=== PATIENT | female | born 1985 | race Caucasian/White ===

== ENCOUNTER 2016-12-05 14:44 | Emergency (ER) | payer OTHER ==
[~2016-12-05] VITALS: Ht 175.3 cm; Wt 140.6 kg
[~2016-12-05 14:44] MED LIST: FERR-26 PO; FLUT9.9S NS; Gabapentin PO; HCTZ PO; HYDR-79 PO; IBUP-1060 PO; LISI-334 PO; LISI-338 PO; LISI10TA2 PO; METF500T4 PO; METO10TA PO; PRED-220 PO; PROM12.56 PO; PROP10TA PO; RANI15SY PO; SPIR25TA3 PO
[2016-12-05 14:53] VITALS: BP 159/95
[2016-12-05] MEDS ORDERED: TRAM50TA PO (15:31)
--- NOTE | 2016-12-05 15:31 | PHYS DOC ---
Past Medical History Past Medical History: Diabetes-Type II, Hypertension, Kidney Stone, Other Additional Past Medical Histor: Arthritis, HSP Past Surgical History: Cholecystectomy, , Tubal ligation, Other Additional Past Surgical Histo: Ureteral stents, D&C, WISDOMT TEETH EXTRACTION Alcohol Use: None Drug Use: None Adult General Chief Complaint Chief Complaint: [facility] PROBLEM [facility] HPI Patient is a 31 year old female who presents with bilateral dental pain after having her wisdom teeth removed on 12/02/15. Reports she has taking Ibuprofen without relief. Denies fever. Review of Systems Review of Systems Constitutional: Denies fever or chills Eyes: Denies change in visual acuity, redness, or eye pain HENT: Denies nasal congestion or sore throat. Bilateral lower dental pain Respiratory: Denies cough or shortness of breath Cardiovascular: No additional information not addressed in HPI GI: Denies abdominal pain, nausea, vomiting, bloody stools or diarrhea : Denies dysuria or hematuria Musculoskeletal: Denies back pain or joint pain Integument: Denies rash or skin lesions Neurologic: Denies headache, focal weakness or sensory changes Endocrine: Denies polyuria or polydipsia Allergies Allergies Allergies Coded Allergies Type Severity Reaction Last Updated Verified acetaminophen Allergy Severe angioedema 01/07/14 Yes Penicillins Allergy Intermediate Hives 08/30/14 Yes amoxicillin Allergy Intermediate hives 08/30/14 Yes morphine Allergy Intermediate "[place] like chest was going to explode" 09/03/14 Yes sulfamethoxazole Allergy Intermediate 08/30/14 Yes tetracycline Allergy Intermediate hives 08/30/14 Yes trimethoprim Allergy Intermediate 08/30/14 Yes tramadol Adverse Reaction Intermediate 12/05/16 Yes Physical Exam Physical Exam Constitutional: Well developed, well nourished, no acute distress, non-toxic appearance. HENT: Normocephalic, atraumatic, bilateral external ears normal, oropharynx moist, no oral exudates, nose normal. Bilateral wisdom area without erythema, hematoma, abscess, or dry socket. No trismus Eyes: PERRLA, EOMI, conjunctiva normal, no discharge. Neck: Normal range of motion, no tenderness, supple, no stridor. Cardiovascular:Heart rate regular rhythm, no murmur Lungs & Thorax: Bilateral breath sounds clear to auscultation Abdomen: Bowel sounds normal, soft, no tenderness, no masses, no pulsatile masses. [] Skin: Warm, dry, no erythema, no rash. [] Back: No tenderness, no CVA tenderness. [] Extremities: No tenderness, no cyanosis, no clubbing, ROM intact, no edema. [] Neurologic: Alert and oriented X 3, normal motor function, normal sensory function, no focal deficits noted. [] Psychologic: Affect normal, judgement normal, mood normal. [] Current Patient Data Vital Signs Vital Signs Date Time Temp Pulse Resp B/P Pulse Ox O2 Delivery O2 Flow Rate FiO2 12/05/16 14:53 98.1 99 18 159/95 96 Room Air 98.1 EKG EKG [] Radiology/Procedures Radiology/Procedures [] Impressions: 1. Dental pain Course & Med Decision Making Course & Med Decision Making Pertinent Labs and Imaging studies reviewed. (See chart for details) On discharge patient reported Tramadol causing itching and request Vicoprofen. Dragon Disclaimer Dragon Disclaimer This electronic medical record was generated, in whole or in part, using a voice recognition dictation system. Departure Departure Impression: Primary Impression: Pain, dental Disposition: HOME, SELF-CARE Condition: STABLE Referrals: NOAM LIZAMA (PCP) Patient Instructions: Dental Extraction, Care After, Dental Pain, [id number] Additional Instructions: 1. Take all medication as prescribed 2. Call your dentist Wednesday to discuss pain control 3. Return if any problems or concerns Scripts Tramadol Hcl 50 Mg [id number] Mg PO Q6H PRN PAIN #10 TAB Prov:SHANICE BERNABE APRN 12/05/16 SHANICE BERNABE APRN Dec 05, 2016 15:31
== END 2016-12-05 15:47 | disposition home or self-care (01) ==
LOC: ER 14:44
DX: K08.89 Other specified disorders of teeth and supporting structures (principal); E11.9 Type 2 diabetes mellitus without complications; I10 Essential (primary) hypertension; M19.90 Unspecified osteoarthritis, unspecified site; Z88.0 Allergy status to penicillin; Z88.1 Allergy status to other antibiotic agents; Z88.2 Allergy status to sulfonamides; Z88.5 Allergy status to narcotic agent; Z88.6 Allergy status to analgesic agent
CPT/HCPCS: 99281

== ENCOUNTER 2017-01-27 19:37 | Emergency (ER) | payer OTHER ==
[~2017-01-27] VITALS: Ht 177.8 cm; Wt 141.5 kg
[~2017-01-27 19:37] MED LIST changes: +TRAM50TA PO
[2017-01-27] MEDS ORDERED: IV NORMAL SALINE 1000ML BAG 1,000 ML IV SCH (20:17)
--- NOTE | 2017-01-27 20:24 | PHYS DOC ---
Past Medical History Past Medical History: Diabetes-Type II, Hypertension, Kidney Stone, Other Additional Past Medical Histor: Arthritis, HSP Past Surgical History: Cholecystectomy, , Tubal ligation, Other Additional Past Surgical Histo: Ureteral stents, D&C, WISDOMT TEETH EXTRACTION Alcohol Use: None Drug Use: None Adult General Chief Complaint Chief Complaint: FLU SYMPTOM HPI HPI Patient is a 31 year old female who presents with vomiting and diarrhea that began suddenly today along with fever, sore throat and headache that began yesterday. Reports 6-7 episodes of vomiting and 4-5 episodes of diarrhea. Review of Systems Review of Systems Constitutional: Denies fever or chills [] Eyes: Denies change in visual acuity, redness, or eye pain [] HENT: Denies nasal congestion or sore throat [] Respiratory: Denies cough or shortness of breath [] Cardiovascular: No additional information not addressed in HPI [] GI: Denies abdominal pain, nausea, vomiting, bloody stools or diarrhea [] : Denies dysuria or hematuria [] Musculoskeletal: Denies back pain or joint pain [] Integument: Denies rash or skin lesions [] Neurologic: Denies headache, focal weakness or sensory changes [] Endocrine: Denies polyuria or polydipsia [] Current Medications Current Medications Current Medications Medications (Trade) Dose Ordered Sig/[facility] Start Time Stop Time Status Last Admin Dose Admin Fentanyl Citrate (Fentanyl 2ml Vial) 50 mcg 1X ONCE 01/27/17 22:00 01/27/17 22:01 DC 01/27/17 21:38 50 MCG Info (Do NOT chart on this entry -- for MONITORING) 1 each PRN DAILY PRN 01/27/17 21:45 01/27/17 22:59 DC Iohexol (Omnipaque 300 Mg/ml) 75 ml 1X ONCE 01/27/17 22:00 01/27/17 22:01 DC 01/27/17 22:04 75 ML Multi-Ingredient Mouthwash/Gargle (Gi Cocktail Single Dose) 15 ml 1X ONCE 01/27/17 22:00 01/27/17 22:01 DC 01/27/17 21:38 15 ML Ondansetron HCl (Zofran) 4 mg 1X ONCE 01/27/17 20:30 01/27/17 20:31 DC 01/27/17 20:38 4 MG Sodium Chloride (Iv Sodium Chloride 0.9% 1000ml Bag) 1,000 ml @ 1,000 mls/hr Q1H 01/27/17 20:17 01/27/17 21:16 DC 01/27/17 20:38 1,000 MLS/HR Allergies Allergies Allergies Coded Allergies Type Severity Reaction Last Updated Verified acetaminophen Allergy Severe angioedema 01/07/14 Yes Penicillins Allergy Intermediate Hives 08/30/14 Yes amoxicillin Allergy Intermediate hives 08/30/14 Yes morphine Allergy Intermediate "[place] like chest was going to explode" 09/03/14 Yes sulfamethoxazole Allergy Intermediate 08/30/14 Yes tetracycline Allergy Intermediate hives 08/30/14 Yes trimethoprim Allergy Intermediate 08/30/14 Yes tramadol Adverse Reaction Intermediate 12/05/16 Yes Physical Exam Physical Exam Constitutional: Well developed, well nourished, no acute distress, non-toxic appearance. [] HENT: Normocephalic, atraumatic, bilateral external ears normal, oropharynx moist, no oral exudates, nose normal. [] Eyes: PERRLA, EOMI, conjunctiva normal, no discharge. [] Neck: Normal range of motion, no tenderness, supple, no stridor. [] Cardiovascular:Heart rate regular rhythm, no murmur [] Lungs & Thorax: Bilateral breath sounds clear to auscultation [] Abdomen: Bowel sounds normal, soft, no tenderness, no masses, no pulsatile masses. [] Skin: Warm, dry, no erythema, no rash. [] Back: No tenderness, no CVA tenderness. [] Extremities: No tenderness, no cyanosis, no clubbing, ROM intact, no edema. [] Neurologic: Alert and oriented X 3, normal motor function, normal sensory function, no focal deficits noted. [] Psychologic: Affect normal, judgement normal, mood normal. [] Current Patient Data Vital Signs Vital Signs Date Time Temp Pulse Resp B/P Pulse Ox O2 Delivery O2 Flow Rate FiO2 01/27/17 22:45 102 18 172/88 95 Room Air 01/27/17 20:15 99.0 99.0 Lab Values Laboratory Tests Test 01/27/17 19:56 01/27/17 20:30 01/27/17 20:34 01/27/17 21:05 Influenza Type A Antigen Negative (NEGATIVE) Influenza Type B Antigen Negative (NEGATIVE) White Blood Count 13.0x10^3/uL (4.0-11.0) H Red Blood Count 4.89x10^6/uL (3.50-5.40) Hemoglobin 14.1g/dL (12.0-15.5) Hematocrit 42.8% (36.0-47.0) Mean Corpuscular Volume 88fL (79-100) Mean Corpuscular Hemoglobin 29pg (25-35) Mean Corpuscular Hemoglobin Concent 33g/dL (31-37) Red Cell Distribution Width 14.2% (11.5-14.5) Platelet Count 273x10^3/uL (140-400) Neutrophils (%) (Auto) 83% (31-73) H Lymphocytes (%) (Auto) 10% (24-48) L Monocytes (%) (Auto) 5% (0-9) Eosinophils (%) (Auto) 1% (0-3) Basophils (%) (Auto) 0% (0-3) Neutrophils # (Auto) 10.8x10^3uL (1.8-7.7) H Lymphocytes # (Auto) 1.3x10^3/uL (1.0-4.8) Monocytes # (Auto) 0.7x10^3/uL (0.0-1.1) Eosinophils # (Auto) 0.1x10^3/uL (0.0-0.7) Basophils # (Auto) 0.0x10^3/uL (0.0-0.2) Sodium Level 142mmol/L (136-145) Potassium Level 4.0mmol/L (3.5-5.1) Chloride Level 104mmol/L (98-107) Carbon Dioxide Level 29mmol/L (21-32) Anion Gap 9 (6-14) Blood Urea Nitrogen 14mg/dL (7-20) Creatinine 0.8mg/dL (0.6-1.0) Estimated GFR (Cockcroft-Gault) 83.7 BUN/Creatinine Ratio 18 (6-20) Glucose Level 113mg/dL (70-99) H Calcium Level 9.2mg/dL (8.5-10.1) Total Bilirubin 1.3mg/dL (0.2-1.0) H Aspartate Amino Transferase (AST) 41U/L (15-37) H Alanine Aminotransferase (ALT) 55U/L (14-59) Alkaline Phosphatase 79U/L (46-116) Total Protein 8.1g/dL (6.4-8.2) Albumin 3.7g/dL (3.4-5.0) Albumin/Globulin Ratio 0.8 (1.0-1.7) L Lipase 107U/L (73-393) Glucose (Fingerstick) 101mg/dL (70-99) H Urine Collection Type Unknown Urine Color Yellow Urine Clarity Clear Urine pH 6.0 Urine Specific [place] 1.025 Urine Protein Negativemg/dL (NEG-TRACE) Urine Glucose (UA) Negativemg/dL (NEG) Urine Ketones (Stick) Negativemg/dL (NEG) Urine Blood Negative (NEG) Urine Nitrite Negative (NEG) Urine Bilirubin Negative (NEG) Urine Urobilinogen Dipstick 0.2mg/dL (0.2 mg/dL) Urine Leukocyte Esterase Negative (NEG) Urine RBC 1-2/HPF (0-2) Urine WBC 1-4/HPF (0-4) Urine Squamous Epithelial Cells Many/LPF Urine Bacteria Many/HPF (0-FEW) Test 01/27/17 21:11 POC Urine HCG, Qualitative Hcg negative (Negative) Laboratory Tests 01/27/17 20:30 Laboratory Tests 01/27/17 20:30 EKG EKG [] Radiology/Procedures Radiology/Procedures [] Impressions: Nausea, vomiting, and diarrhea Course & Med Decision Making Course & Med Decision Making Pertinent Labs and Imaging studies reviewed. (See chart for details) One episode of vomiting since arrival prior to [facility], none since. CBC without leukocytosis or bandemia. UA negative for nitrates, leukocyte esterase, or WBC. COntinue to be afebrile. C/o epigastric pain and headache which have resolved. Talking on phone upon my entering room, showing no distress. Discussed CT results and negative for acute findings and patient agreed with plan of care to return if fever, increased pain, inability to tolerate fluids or any other probelsm Dragon Disclaimer Dragon Disclaimer This electronic medical record was generated, in whole or in part, using a voice recognition dictation system. Departure Departure Impression: Primary Impression: Nausea, vomiting, and diarrhea Disposition: 01 HOME, SELF-CARE Condition: STABLE Referrals: NOAM LIZAMA (PCP) Patient Instructions: Diarrhea, Diet for Diarrhea, Adult, Nausea and Vomiting, [id number] Additional Instructions: Take medication as prescribed. Follow up with primary doctor in 1-2 days. Return if problems or concerns. Scripts Ondansetron (Zofran Odt)4 Mg Tab.rapdis1 Tab SL Q8HRS #10 TAB Prov:SHANICE BERNABE APRN 01/27/17 SHANICE BERNABE APRN Jan 27, 2017 20:24
[2017-01-27] MEDS ORDERED: ONDANSETRON PF 4 MG/2 ML VIAL. IV ONE (20:30)
[2017-01-27 20:47] LABS: BASO % 0 % (0-3); EOS % 1 % (0-3); HEMATOCRIT 42.8 % (36.0-47.0); HEMOGLOBIN 14.1 g/dL (12.0-15.5); LYMPH # 1.3 x10^3/uL (1.0-4.8); LYMPH % 10 % (24-48); MEAN CORPUSCULAR HEMOGLOBIN 29 pg (25-35); MEAN CORPUSCULAR HGB CONC 33 g/dL (31-37); MEAN CORPUSCULAR VOLUME 88 fL (79-100); MONO % 5 % (0-9); NEUT % 83 % (31-73); PLATELET COUNT 273 x10^3/uL (140-400); RED BLOOD COUNT 4.89 x10^6/uL (3.50-5.40); RED CELL DISTRIBUTION WIDTH 14.2 % (11.5-14.5)
[2017-01-27 21:07] LABS: CALCIUM 9.2 mg/dL (8.5-10.1); CREATININE 0.8 mg/dL (0.6-1.0); GFR 83.7
[2017-01-27 21:10] LABS: OBC FLU VALID
[2017-01-27 21:12] LABS: ALBUMIN 3.7 g/dL (3.4-5.0); ALBUMIN/GLOBULIN RATIO 0.8 (1.0-1.7); TOTAL BILIRUBIN 1.3 mg/dL (0.2-1.0); TOTAL PROTEIN 8.1 g/dL (6.4-8.2)
[2017-01-27 21:21] LABS: BILIRUBIN,URINE NEGATIVE (NEG); GLUCOSE,URINE NEGATIVE (NEG); NITRITE,URINE NEGATIVE (NEG); PROTEIN,URINE NEGATIVE (NEG-TRACE); UROBILINOGEN,URINE 0.2 mg/dL (0.2 mg/dL)
[2017-01-27 21:28] LABS: BACTERIA,URINE MANY /HPF (0-FEW); SQUAMOUS EPITHELIAL CELL,UR MANY /LPF
[2017-01-27] MEDS ORDERED: CONTRAST GIVEN MC PRN (21:45)
[2017-01-27] MEDS ORDERED: IOHEXOL 300 MG/ML 75 ML VIAL IV ONE (22:00)
[2017-01-27] MEDS ORDERED: FENTANYL PF 100 MCG/2 ML VIAL. IV ONE (22:00)
[2017-01-27] MEDS ORDERED: LIDO:MAALOX:DONNATAL 1:1:1 15 ML SINGLE DOSE SWSW ONE (22:00)
--- NOTE | 2017-01-27 22:39 | RAD ---
PROCEDURE CT scan of the abdomen and pelvis with contrast 01/27/2017 HISTORY Nausea, vomiting and diarrhea. TECHNIQUE After the intravenous administration 75 cc of Omnipaque 300 only, contiguous, 5 millimeter axial sections were obtained through the abdomen and pelvis. One or more of the following individualized dose reduction techniques were utilized for this study: 1. Automated exposure control. 2. Adjustment of the mA and/or kV according to patient size. 3. Use of iterative reconstruction technique. FINDINGS Comparison study is dated 06/05/2016. Images through the lung bases demonstrate small calcified granulomas involving the right lower lobe. The liver parenchyma has a decreased attenuation consistent with mild fatty infiltration. The spleen, pancreas, adrenal glands and kidneys are within normal limits. Mild atherosclerotic calcification of the abdominal aorta is seen. The abdominal aorta tapers normally. Surgical clips are seen within the gallbladder fossa consistent with a cholecystectomy. No free fluid or free air is within the abdomen. There is no evidence of bowel obstruction. The appendix is well visualized and is within normal limits. The cecum extends medially across the midline into the left lower quadrant of the abdomen. Images through the pelvis demonstrate the urinary bladder to be contracted. No free fluid is seen. The uterus is within normal limits. No adnexal mass is noted. Calcifications are seen within the pelvis consistent with phleboliths. No inflammatory changes are seen surrounding the colon. IMPRESSION No acute abnormality is seen. Electronically signed by: Thom Santoyo MD (Jan 27, 2017 22:38:19)
[2017-01-27 22:45] VITALS: BP 172/88
[2017-01-27] MEDS ORDERED: ONDA4TAB10 SL (22:52)
[2017-01-28 15:52] LABS: NEGATIVE OBC STREP NEG; POSITIVE OBC STREP POS
== END 2017-01-27 22:58 | disposition home or self-care (01) ==
LOC: ER 19:37
DX: R11.2 Nausea with vomiting, unspecified (principal); R19.7 Diarrhea, unspecified; R50.9 Fever, unspecified; E11.9 Type 2 diabetes mellitus without complications; I10 Essential (primary) hypertension; M19.90 Unspecified osteoarthritis, unspecified site; Z87.442 Personal history of urinary calculi; Z90.49 Acquired absence of other specified parts of digestive tract; Z98.890 Other specified postprocedural states; Z98.51 Tubal ligation status; Z96.0 Presence of urogenital implants; Z88.0 Allergy status to penicillin; Z88.1 Allergy status to other antibiotic agents; Z88.2 Allergy status to sulfonamides; Z88.5 Allergy status to narcotic agent; Z88.6 Allergy status to analgesic agent
CPT/HCPCS: 36415; 74177; 80053; 81001; 81025; 82947; 83690; 85027; 87070; 87086; 87804; 87880; 96361; 96374; 96375; 99285; J2405; J3010; J7030; Q9967

== ENCOUNTER 2017-02-15 23:02 | Emergency (ER) | payer OTHER ==
[~2017-02-15] VITALS: Ht 175.3 cm; Wt 145.1 kg
[~2017-02-15 23:02] MED LIST changes: +ONDA4TAB10 SL
[2017-02-15 23:11] VITALS: BP 149/110
[2017-02-15 23:46] LABS: BILIRUBIN,URINE SMALL (NEG); GLUCOSE,URINE NEGATIVE (NEG); NITRITE,URINE NEGATIVE (NEG); PH,URINE 5.5; PROTEIN,URINE NEGATIVE (NEG-TRACE); UROBILINOGEN,URINE 0.2 mg/dL (0.2 mg/dL)
--- NOTE | 2017-02-15 23:46 | PHYS DOC ---
Past Medical History Past Medical History: Diabetes-Type II, Hypertension, Kidney Stone, Other Additional Past Medical Histor: Arthritis, HSP Past Surgical History: Cholecystectomy, , Tubal ligation, Other Additional Past Surgical Histo: Ureteral stents, D&C, WISDOMT TEETH EXTRACTION Alcohol Use: None Drug Use: None Adult General Chief Complaint Chief Complaint: MENSTRUAL PAIN/CRAMPS [facility] HPI Patient is a 31 year old female presents to the emergency department stating that she is having right lower back pain that is stabbing pain that radiates all the way into the front of her abdomen. She states that she started her menstrual cycle and sometimes has menstrual cycle pain and discomfort. She does state that she has vaginal discharge prior to her menstrual cycle starting. She states that it was white in color she states this is pretty normal for her to have vaginal discharge. Patient states that she has sexually active with one partner although that's not been for a while. Patient also states that she's been taken ibuprofen for the pain and discomfort without relief. She also stated that she is taken tramadol with no relief of the pain and discomfort. Patient has listed in her allergies here at the emergency department as tramadol being an allergy. Days that she had gone to to be seen for this pain and discomfort and sent for 4 hours and left without being seen. Patient denies any nausea vomiting. She denies any urinary symptoms. She does state that she is on a water pill and urinates frequently. Review of Systems Review of Systems Constitutional: Denies fever or chills [] Eyes: Denies change in visual acuity, redness, or eye pain [] HENT: Denies nasal congestion or sore throat [] Respiratory: Denies cough or shortness of breath [] Cardiovascular: No additional information not addressed in HPI [] GI: right lower abdominal pain, denies nausea, vomiting, bloody stools or diarrhea [] : Denies dysuria or hematuria [] Musculoskeletal: Denies back pain or joint pain [] Integument: Denies rash or skin lesions [] Neurologic: Denies headache, focal weakness or sensory changes [] Current Medications Current Medications Current Medications Medications (Trade) Dose Ordered Sig/[facility] Start Time Stop Time Status Last Admin Dose Admin Ibuprofen (Motrin) 800 mg 1X ONCE 02/16/17 00:15 02/16/17 00:16 DC 02/16/17 00:00 800 MG Allergies Allergies Allergies Coded Allergies Type Severity Reaction Last Updated Verified acetaminophen Allergy Severe angioedema 01/07/14 Yes Penicillins Allergy Intermediate Hives 08/30/14 Yes amoxicillin Allergy Intermediate hives 08/30/14 Yes morphine Allergy Intermediate "[place] like chest was going to explode" 09/03/14 Yes sulfamethoxazole Allergy Intermediate 08/30/14 Yes tetracycline Allergy Intermediate hives 08/30/14 Yes trimethoprim Allergy Intermediate 08/30/14 Yes ketorolac Allergy Mild 02/16/17 Yes Physical Exam Physical Exam Constitutional: Well developed, well nourished, no acute distress, non-toxic appearance. [] HENT: Normocephalic, atraumatic, bilateral external ears normal, oropharynx moist, no oral exudates, nose normal. [] Eyes: PERRLA, EOMI, conjunctiva normal, no discharge. [] Neck: Normal range of motion, no tenderness, supple, no stridor. [] Cardiovascular:Heart rate regular rhythm, no murmur [] Lungs & Thorax: Bilateral breath sounds clear to auscultation [] Abdomen: Bowel sounds hypoactive, soft, no tenderness, no masses, no pulsatile masses. [] Skin: Warm, dry, no erythema, no rash. [] Back: Right lower back tenderness, right CVA tenderness. [] Extremities: No tenderness, no cyanosis, no clubbing, ROM intact, no edema. [] Neurologic: Alert and oriented X 3, normal motor function, normal sensory function, no focal deficits noted. [] Psychologic: Affect normal, judgement normal, mood normal. [] Current Patient Data Vital Signs Vital Signs Date Time Temp Pulse Resp B/P Pulse Ox O2 Delivery O2 Flow Rate FiO2 02/15/17 23:11 97.4 90 18 149/110 97 Room Air 97.4 Lab Values Laboratory Tests Test 02/15/17 23:30 02/15/17 23:40 Urine Collection Type Unknown Urine Color Yellow Urine Clarity Clear Urine pH 5.5 Urine Specific [place] >=1.030 Urine Protein Negativemg/dL (NEG-TRACE) Urine Glucose (UA) Negativemg/dL (NEG) Urine Ketones (Stick) Negativemg/dL (NEG) Urine Blood Moderate (NEG) Urine Nitrite Negative (NEG) Urine Bilirubin Small (NEG) Urine Urobilinogen Dipstick 0.2mg/dL (0.2 mg/dL) Urine Leukocyte Esterase Trace (NEG) Urine RBC Occ/HPF (0-2) Urine WBC Occ/HPF (0-4) Urine Bacteria Few/HPF (0-FEW) Urine Test Negative (NEG) Microbiology 02/15/17 Wet Prep - Final, Complete Radiology/Procedures Radiology/Procedures US pelvis Impression: Small nabothian cysts in the cervix. No other focal abnormalities seen in the pelvis. The ovaries however were not identified. Electronically signed by: Jeanine Cornejo MD (Feb 16, 2017 01:46:29) Course & Med Decision Making Course & Med Decision Making Pertinent Labs and Imaging studies reviewed. (See chart for details) Pelvic exam completed with speculum exam noted to have some vaginal bleeding noted. Manual exam patient with bilateral adnexal tenderness as well as CMT noted. [id number] Reese, patients wet prep and ultrasound pending. [] Accepted care from Vangie Wang APRN at end of her shift. Workup is unremarkable. She is feeling better after medications. She is adamant that she is not concerned about STDs at this time; will await cultures prior to treatment. Return precautions given. She understood and agrees with plan. - MD Leandro Bland Disclaimer Dragon Disclaimer This electronic medical record was generated, in whole or in part, using a voice recognition dictation system. Departure Departure Impression: Primary Impression: Abdominal pain Disposition: 01 HOME, SELF-CARE Condition: STABLE Referrals: NOAM LIZAMA (PCP) Patient Instructions: Abdominal Pain, [id number] Additional Instructions: Take ibuprofen as needed for pain. Follow-up with your primary care doctor. Return for any concerns. Problem Qualifiers Primary Impression: Abdominal pain Abdominal location: lower abdomen, unspecified Qualified Code: R10.30 - Lower abdominal pain, unspecified VANGIE WANG APRN Feb 15, 2017 23:45 Refugio REESE MD Feb 16, 2017 02:31
[2017-02-15 23:52] LABS: RBC,URINE OCC /HPF (0-2); WBC,URINE OCC /HPF (0-4)
[2017-02-15 23:53] LABS: BACTERIA,URINE FEW /HPF (0-FEW)
[2017-02-15 23:55] LABS: NEG OBC UR NEG
[2017-02-15 23:56] LABS: POS OBC UR POS
[2017-02-16] MEDS ORDERED: IBUPROFEN 800 MG TABLET. PO ONE (00:15)
--- NOTE | 2017-02-16 01:48 | RAD ---
Pelvic ultrasound with transvaginal: Reason for examination: Right lower quadrant pelvic pain. Transvaginal ultrasound examination of the pelvis was performed. Examination is limited by the patient's obesity. Uterus measures 9.6 x 5.9 centimeters in greatest dimensions. Endometrium is not abnormally thickened at 1.1 centimeters. Nabothian cysts is seen the cervix. The ovaries were not identified. No free fluid is identified. Impression: Small nabothian cysts in the cervix. No other focal abnormalities seen in the pelvis. The ovaries however were not identified. Electronically signed by: Jeanine Cornejo MD (Feb 16, 2017 01:46:29)
== END 2017-02-16 02:38 | disposition home or self-care (01) ==
LOC: ER 23:02
DX: R10.30 Lower abdominal pain, unspecified (principal); M54.5 Low back pain; N89.8 Other specified noninflammatory disorders of vagina; E11.9 Type 2 diabetes mellitus without complications; I10 Essential (primary) hypertension; M19.90 Unspecified osteoarthritis, unspecified site; Z87.442 Personal history of urinary calculi; Z90.49 Acquired absence of other specified parts of digestive tract; Z98.51 Tubal ligation status; Z96.0 Presence of urogenital implants; Z88.0 Allergy status to penicillin; Z88.2 Allergy status to sulfonamides; Z88.6 Allergy status to analgesic agent; Z88.8 Allergy status to other drugs, medicaments and biological substances
CPT/HCPCS: 76830; 76856; 81001; 81025; 87086; 87491; 87591; 99285; Q0111

== ENCOUNTER 2017-03-04 19:59 | Emergency (ER) | payer OTHER ==
[~2017-03-04] VITALS: Ht 177.8 cm; Wt 97.5 kg
[2017-03-04 20:37] VITALS: BP 178/103
[2017-03-04] MEDS ORDERED: DIAZEPAM 5 MG TABLET PO ONE (22:30)
[2017-03-04] MEDS ORDERED: IBUP-1060 PO (22:34)
[2017-03-04] MEDS ORDERED: DIAZ5TAB PO (22:34)
--- NOTE | 2017-03-04 22:34 | PHYS DOC ---
Past Medical History Past Medical History: Diabetes-Type II, Hypertension, Kidney Stone, Other Additional Past Medical Histor: Arthritis, HSP Past Surgical History: Cholecystectomy, , Tubal ligation, Other Additional Past Surgical Histo: Ureteral stents, D&C, WISDOMT TEETH EXTRACTION Alcohol Use: None Drug Use: None Adult General Chief Complaint Chief Complaint: BACK PAIN - NO INJURY HPI HPI Patient is a 31 year old female with history of hypertension, diabetes type 2, kidney stones, who presents today with lower neck pain that began 2 days ago. Patient denies any injury. She states the pain is worse when she moves around. She states she has tried taking ibuprofen with no relief. Review of Systems Review of Systems Constitutional: Denies fever or chills [] Eyes: Denies change in visual acuity, redness, or eye pain [] HENT: Denies nasal congestion or sore throat [] Respiratory: Denies cough or shortness of breath [] Cardiovascular: No additional information not addressed in HPI [] GI: Denies abdominal pain, nausea, vomiting, bloody stools or diarrhea [] : Denies dysuria or hematuria [] Musculoskeletal: Lower neck pain Integument: Denies rash or skin lesions [] Neurologic: Denies headache, focal weakness or sensory changes [] Endocrine: Denies polyuria or polydipsia [] Current Medications Current Medications Current Medications Medications (Trade) Dose Ordered Sig/Contreras Start Time Stop Time Status Last Admin Dose Admin Diazepam (Valium) 5 mg 1X ONCE 03/04/17 22:30 03/04/17 22:31 03/04/17 22:01 5 MG Allergies Allergies Allergies Coded Allergies Type Severity Reaction Last Updated Verified acetaminophen Allergy Severe angioedema 01/07/14 Yes Penicillins Allergy Intermediate Hives 08/30/14 Yes amoxicillin Allergy Intermediate hives 08/30/14 Yes morphine Allergy Intermediate "[place] like chest was going to explode" 09/03/14 Yes sulfamethoxazole Allergy Intermediate 08/30/14 Yes tetracycline Allergy Intermediate hives 08/30/14 Yes trimethoprim Allergy Intermediate 08/30/14 Yes ketorolac Allergy Mild 02/16/17 Yes Physical Exam Physical Exam Constitutional: Well developed, well nourished, no acute distress, non-toxic appearance. [] HENT: Normocephalic, atraumatic, bilateral external ears normal, oropharynx moist, no oral exudates, nose normal. [] Eyes: PERRLA, EOMI, conjunctiva normal, no discharge. [] Neck: On exam patient has a fat on her lower neck area. There is tenderness to the region, no midline cervical spine tenderness. Normal range of motion, supple, no stridor. [] Cardiovascular:Heart rate regular rhythm, no murmur [] Lungs & Thorax: Bilateral breath sounds clear to auscultation [] Abdomen: Bowel sounds normal, soft, no tenderness, no masses, no pulsatile masses. [] Skin: Warm, dry, no erythema, no rash. [] Back: No tenderness, no CVA tenderness. [] Extremities: No tenderness, no cyanosis, no clubbing, ROM intact, no edema. [] Neurologic: Alert and oriented X 3, normal motor function, normal sensory function, no focal deficits noted. [] Psychologic: Affect normal, judgement normal, mood normal. [] Current Patient Data Vital Signs Vital Signs Date Time Temp Pulse Resp B/P Pulse Ox O2 Delivery O2 Flow Rate FiO2 03/04/17 20:37 98.1 92 18 96 Room Air 98.1 EKG EKG [] Radiology/Procedures Radiology/Procedures [] Course & Med Decision Making Course & Med Decision Making Pertinent Labs and Imaging studies reviewed. (See chart for details) Patient has musculoskeletal neck pain with no known injury. Discharged with naproxen and Valium. Follow-up with her own PCP in one week. Dragon Disclaimer Dragon Disclaimer This electronic medical record was generated, in whole or in part, using a voice recognition dictation system. Departure Departure Impression: Primary Impression: Neck pain, acute Disposition: 01 HOME, SELF-CARE Condition: STABLE Referrals: NOAM LIZAMA (PCP) Follow-up with your doctor in one week Patient Instructions: Musculoskeletal Pain Additional Instructions: You were seen for musculoskeletal neck pain. Please take the prescribed medicines as ordered. Follow-up with your own doctor in the next 7 days. Come back to the ED at any point symptoms worsen. You can apply heat or ice to the affected area. Scripts Diazepam (Valium)5 Mg Tablet5 Mg PO TID PRN MUSCLE SPASMS #12 TAB Prov:MUTUNGA,ELO COMPUTER SYSTEMS MANAGER 03/04/17 Ibuprofen 800 Mg [id number] Mg PO PRN Q6HRS PRN INFLAMMATION #30 TAB Prov:MUTUNGA,ELO COMPUTER SYSTEMS MANAGER 03/04/17 ELO ECHEVARRIA APRN Mar 04, 2017 22:34
== END 2017-03-04 22:45 | disposition home or self-care (01) ==
LOC: ER 19:59
DX: M54.2 Cervicalgia (principal); E11.9 Type 2 diabetes mellitus without complications; M19.90 Unspecified osteoarthritis, unspecified site; I10 Essential (primary) hypertension; Z88.6 Allergy status to analgesic agent; Z88.1 Allergy status to other antibiotic agents; Z88.5 Allergy status to narcotic agent; Z88.0 Allergy status to penicillin; Z88.2 Allergy status to sulfonamides
CPT/HCPCS: 99283

== ENCOUNTER 2017-04-23 12:40 | Emergency (ER) | payer OTHER ==
[~2017-04-23] VITALS: Ht 177.8 cm; Wt 129.3 kg
[~2017-04-23 12:40] MED LIST changes: +DIAZ5TAB PO
[2017-04-23 13:12] VITALS: BP 151/90
--- NOTE | 2017-04-23 14:19 | PHYS DOC ---
Past Medical History Past Medical History: Diabetes-Type II, Hypertension, Kidney Stone, Other Additional Past Medical Histor: Arthritis, HSP Past Surgical History: Cholecystectomy, , Gastric Bypass, Tubal ligation, Other Additional Past Surgical Histo: Ureteral stents, D&C, WISDOMT TEETH EXTRACTION Alcohol Use: None Drug Use: None Adult General Chief Complaint Chief Complaint: OTHER COMPLAINTS HPI HPI 31-year-old female presenting to the emergency department after having gastric bypass surgery at [facility] on April 07. She reports getting 2 weeks of Percocet time and running out of the medication and unable to contact her surgeon at this time. She has pain in the incision site. She describes the pain is sharp moderate nonradiating and without alleviating factors. Otherwise she denies nausea vomiting. Review of systems is negative for fevers chills chest pain shortness of breath. All other review of systems is negative unless otherwise noted in history of present illness. Review of Systems Review of Systems SEE ABOVE. Allergies Allergies Allergies Coded Allergies Type Severity Reaction Last Updated Verified acetaminophen Allergy Severe angioedema 04/23/17 Yes Penicillins Allergy Intermediate Hives 04/23/17 Yes amoxicillin Allergy Intermediate hives 04/23/17 Yes morphine Allergy Intermediate "[place] like chest was going to explode" 04/23/17 Yes sulfamethoxazole Allergy Intermediate 04/23/17 Yes tetracycline Allergy Intermediate hives 04/23/17 Yes trimethoprim Allergy Intermediate 04/23/17 Yes ketorolac Adverse Reaction Intermediate 04/23/17 Yes tramadol Adverse Reaction Intermediate "I drool" 04/23/17 Yes Physical Exam Physical Exam Constitutional: Well developed, well nourished, no acute distress, non-toxic appearance. HENT: Normocephalic, atraumatic, bilateral external ears normal, oropharynx moist, no oral exudates, nose normal. [] Eyes: PERRLA, EOMI, conjunctiva normal, no discharge. Neck: Normal range of motion, no tenderness, supple, no stridor. [] Cardiovascular:Heart rate regular rhythm, no murmur [] Lungs & Thorax: Bilateral breath sounds clear to auscultation Abdomen: Abdomen is soft and nontender with no rebound tenderness or guarding. Incision sites appear to be clean dry and intact. Minimal serosanguineous drainage from one of the sites. Sites are healing well. Skin: Warm, dry, no erythema, no rash. Back: No tenderness, no CVA tenderness. [] Extremities: No tenderness, no cyanosis, no clubbing, ROM intact, no edema. [] Neurologic: Alert and oriented X 3, normal motor function, normal sensory function, no focal deficits noted. Psychologic: Affect normal, judgement normal, mood normal. [] Current Patient Data Vital Signs Vital Signs Date Time Temp Pulse Resp B/P (MAP) Pulse Ox O2 Delivery O2 Flow Rate FiO2 04/23/17 13:12 98.0 112 20 151/90 (110) 96 Room Air 98.0 EKG EKG [] Radiology/Procedures Radiology/Procedures [] Course & Med Decision Making Course & Med Decision Making Pertinent Labs and Imaging studies reviewed. (See chart for details) [] 31-year-old female with incision site pain from her gastric bypass surgery at [facility]. She reported having received Percocet from her surgeon however when I used the [place] date of for opioid reporting system I found that the patient has received 90 tablets of Percocet on 04/15 and on the patient received 60 tablets of Percocet both of these were from different physicians. Information seemed to be in discrepancy with the patient. I informed the patient that it appears that she has enough medications for pain at this time and that she should follow-up with her surgeon. The patient was then discharged home in stable condition to follow up with their primary care physician over the next 2-3 days. They were to return if their symptoms worsened or if they were concerned for any reason. [id number] discharge instructions and return precautions were given. Patient's questions were answered to their satisfaction. Patient is comfortable plan. Dragon Disclaimer Dragon Disclaimer This electronic medical record was generated, in whole or in part, using a voice recognition dictation system. Departure Departure Impression: Primary Impression: Incisional pain Additional Impressions: Drug-seeking behavior Opioid abuse Disposition: 01 HOME, SELF-CARE Condition: STABLE Referrals: NOAM LIZAMA (PCP) Patient Instructions: Incision Care Additional Instructions: Thank you for allowing us to participate in your care today. Followup with your surgeon in 4-7 days. Use ice packs and heat packs for pain. If you do not have a primary care provider you can ask for a list of our primary care providers. Return to the emergency department you have any new or concerning findings. This should be evaluated by the primary care physician and any necessary consulting services for continued management within a few days after discharge. Return to emergency room if you have any new or concerning symptoms including but not limited to fever, chills, nausea, vomiting, intractable pain, any new rashes, chest pain, shortness of air, uncontrolled bleeding, difficulty breathing, and/or vision loss. Problem Qualifiers AFSHAN HARO MD April 23, 2017 14:19
== END 2017-04-23 14:25 | disposition home or self-care (01) ==
LOC: ER 12:40
DX: G89.18 Other acute postprocedural pain (principal); Z76.5 Malingerer [conscious simulation]; F11.10 Opioid abuse, uncomplicated; I10 Essential (primary) hypertension; E11.9 Type 2 diabetes mellitus without complications; M19.90 Unspecified osteoarthritis, unspecified site; Z87.442 Personal history of urinary calculi; Z90.49 Acquired absence of other specified parts of digestive tract; Z98.890 Other specified postprocedural states; Z98.51 Tubal ligation status; Z88.0 Allergy status to penicillin; Z88.2 Allergy status to sulfonamides; Z88.1 Allergy status to other antibiotic agents; Z88.6 Allergy status to analgesic agent; Z88.5 Allergy status to narcotic agent
CPT/HCPCS: 99281

== ENCOUNTER 2017-06-10 21:07 | Emergency (ER) | payer OTHER ==
[~2017-06-10] VITALS: Ht 177.8 cm; Wt 117.9 kg
[2017-06-10] MEDS ORDERED: oxyCODONE IR 5 MG TABLET PO ONE (21:30)
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
[2017-06-10] MEDS ORDERED: OXYC5CAP PO (22:48)
[2017-06-10 23:00] VITALS: BP 113/87
== END 2017-06-10 23:00 | disposition home or self-care (01) ==
LOC: ER 21:07
DX: S13.4XXA Sprain of ligaments of cervical spine, initial encounter (principal); S00.12XA Contusion of left eyelid and periocular area, initial encounter; S00.11XA Contusion of right eyelid and periocular area, initial encounter; S09.90XA Unspecified injury of head, initial encounter; I10 Essential (primary) hypertension; E11.9 Type 2 diabetes mellitus without complications; M19.90 Unspecified osteoarthritis, unspecified site; K08.409 Partial loss of teeth, unspecified cause, unspecified class; Z88.5 Allergy status to narcotic agent; Z88.1 Allergy status to other antibiotic agents; Z88.6 Allergy status to analgesic agent; Z88.0 Allergy status to penicillin; Z88.2 Allergy status to sulfonamides; Z88.8 Allergy status to other drugs, medicaments and biological substances; Z87.442 Personal history of urinary calculi; Z90.49 Acquired absence of other specified parts of digestive tract; Z96.0 Presence of urogenital implants; Z98.84 Bariatric surgery status; Z98.51 Tubal ligation status; W50.0XXA Accidental hit or strike by another person, initial encounter; Y93.89 Activity, other specified; Y92.89 Other specified places as the place of occurrence of the external cause; Y99.8 Other external cause status
CPT/HCPCS: 70450; 70486; 72125; 81025; 99284

== ENCOUNTER 2017-06-23 12:22 | Emergency (ER) | payer OTHER ==
[~2017-06-23] VITALS: Ht 177.8 cm; Wt 110.2 kg
[~2017-06-23 12:22] MED LIST changes: +OXYC5CAP PO
[2017-06-23] MEDS ORDERED: ONDANSETRON PF 4 MG/2 ML VIAL. IV ONE (12:45)
[2017-06-23] MEDS ORDERED: IV NORMAL SALINE 1000ML BAG 1,000 ML IV ONE (12:45)
[2017-06-23 12:51] LABS: BARBITURATES NEG (NEG); BENZODIAZEPINES NEG (NEG); CANNABINOIDS NEG (NEG); COCAINE NEG (NEG); METHADONE NEG (NEG); OPIATES NEG (NEG); PHENCYCLIDINE NEG (NEG)
--- NOTE | 2017-06-23 12:53 | PHYS DOC ---
Past Medical History Past Medical History: Diabetes-Type II, Hypertension, Kidney Stone, Other Additional Past Medical Histor: Arthritis, HSP Past Surgical History: Cholecystectomy, , Gastric Bypass, Tubal ligation, Other Additional Past Surgical Histo: Ureteral stents, D&C, WISDOMT TEETH EXTRACTION Alcohol Use: None Drug Use: None Adult General Chief Complaint Chief Complaint: NAUSEA/VOMITING/DIARRHA HPI HPI Patient is a 31 year old female presents with complaints of nausea, vomiting, diarrhea going on for about a week. Patient denies any bloody stools or bloody vomit. No fevers. No sick contacts. Patient has been seen by her surgeon and it is believed that she may have a small ulcer. she was given a prescription for Carafate which the patient states she is unable to keep down. Currently the patient is only taking promethazine for nausea or vomiting. Review of Systems Review of Systems Constitutional: Denies fever or chills Respiratory: Denies cough or shortness of breath [] Cardiovascular: no chest pain GI: diffuse abdominal pain, nausea, nonbloody vomiting, and nonbloody diarrhea [ ] : Denies dysuria or hematuria [] Musculoskeletal: Denies back pain or joint pain [] Integument: Denies rash or skin lesions [] Neurologic: Denies headache, focal weakness or sensory changes [] Current Medications Current Medications Current Medications Medications (Trade) Dose Ordered Sig/Contreras Start Time Stop Time Status Last Admin Dose Admin Multi-Ingredient Mouthwash/Gargle (Gi Cocktail Single Dose) 15 ml 1X ONCE 06/23/17 14:00 06/23/17 14:01 DC 06/23/17 13:59 15 ML Ondansetron HCl (Zofran) 4 mg 1X ONCE 06/23/17 12:45 06/23/17 12:46 DC 06/23/17 13:36 4 MG Sodium Chloride 1,000 ml @ 1,000 mls/hr 1X ONCE 06/23/17 12:45 06/23/17 13:44 DC 06/23/17 13:35 1,000 MLS/HR Allergies Allergies Allergies Coded Allergies Type Severity Reaction Last Updated Verified acetaminophen Allergy Severe angioedema 04/23/17 Yes Penicillins Allergy Intermediate Hives 04/23/17 Yes amoxicillin Allergy Intermediate hives 04/23/17 Yes morphine Allergy Intermediate "[place] like chest was going to explode" 04/23/17 Yes sulfamethoxazole Allergy Intermediate 04/23/17 Yes tetracycline Allergy Intermediate hives 04/23/17 Yes trimethoprim Allergy Intermediate 04/23/17 Yes ketorolac Adverse Reaction Intermediate 04/23/17 Yes tramadol Adverse Reaction Intermediate "I drool" 04/23/17 Yes Physical Exam Physical Exam Constitutional: Well developed, well nourished, mild distress, non-toxic appearance. [] HENT: Normocephalic, atraumatic, oropharynx dry, no oral exudates, nose normal. [] Eyes: EOMI, conjunctiva normal, no discharge. [] Neck: Normal range of motion, no tenderness, supple, no stridor. [] Cardiovascular:Heart rate regular rhythm, no murmur [] Lungs & Thorax: Bilateral breath sounds clear to auscultation. No tachypnea Abdomen: Bowel sounds normal, soft, mild diffuse tenderness without guarding or rebound, no masses, no pulsatile masses. [] Skin: Warm, dry, no erythema, no rash. [] Back: No tenderness, Extremities: No tenderness, no cyanosis, no clubbing, ROM intact, no edema. No signs of DVT Neurologic: Alert and oriented X 3, normal motor function, normal sensory function, no focal deficits noted. Patient ambulated in the ED with normal gait without assistance Psychologic: Affect normal, judgement normal, mood normal. [] Current Patient Data Vital Signs Vital Signs Date Time Temp Pulse Resp B/P (MAP) Pulse Ox O2 Delivery O2 Flow Rate FiO2 06/23/17 13:32 86 20 118/88 (98) 94 Room Air 06/23/17 12:39 97.5 97.5 Lab Values Laboratory Tests Test 06/23/17 11:44 06/23/17 12:30 06/23/17 12:55 POC Urine HCG, Qualitative Hcg negative (Negative) Urine Opiates Screen Neg (NEG) Urine Methadone Screen Neg (NEG) Urine Barbiturates Neg (NEG) Urine Phencyclidine Screen Neg (NEG) Urine Amphetamine/Methamphetamine Neg (NEG) Urine Benzodiazepines Screen Neg (NEG) Urine Cocaine Screen Neg (NEG) Urine Cannabinoids Screen Neg (NEG) Urine Ethyl Alcohol Neg (NEG) White Blood Count 8.9 x10^3/uL (4.0-11.0) Red Blood Count 4.92 x10^6/uL (3.50-5.40) Hemoglobin 14.7 g/dL (12.0-15.5) Hematocrit 43.5 % (36.0-47.0) Mean Corpuscular Volume 89 fL (79-100) Mean Corpuscular Hemoglobin 30 pg (25-35) Mean Corpuscular Hemoglobin Concent 34 g/dL (31-37) Red Cell Distribution Width 15.4 % (11.5-14.5) H Platelet Count 185 x10^3/uL (140-400) Neutrophils (%) (Auto) 74 % (31-73) H Lymphocytes (%) (Auto) 17 % (24-48) L Monocytes (%) (Auto) 7 % (0-9) Eosinophils (%) (Auto) 1 % (0-3) Basophils (%) (Auto) 0 % (0-3) Neutrophils # (Auto) 6.7 x10^3uL (1.8-7.7) Lymphocytes # (Auto) 1.5 x10^3/uL (1.0-4.8) Monocytes # (Auto) 0.6 x10^3/uL (0.0-1.1) Eosinophils # (Auto) 0.1 x10^3/uL (0.0-0.7) Basophils # (Auto) 0.0 x10^3/uL (0.0-0.2) Sodium Level 139 mmol/L (136-145) Potassium Level 3.7 mmol/L (3.5-5.1) Chloride Level 100 mmol/L (98-107) Carbon Dioxide Level 20 mmol/L (21-32) L Anion Gap 19 (6-14) H Blood Urea Nitrogen 8 mg/dL (7-20) Creatinine 0.7 mg/dL (0.6-1.0) Estimated GFR (Cockcroft-Gault) 97.6 BUN/Creatinine Ratio 11 (6-20) Glucose Level 79 mg/dL (70-99) Calcium Level 9.5 mg/dL (8.5-10.1) Total Bilirubin 1.2 mg/dL (0.2-1.0) H Aspartate Amino Transferase (AST) 25 U/L (15-37) Alanine Aminotransferase (ALT) 21 U/L (14-59) Alkaline Phosphatase 69 U/L (46-116) Total Protein 7.5 g/dL (6.4-8.2) Albumin 3.2 g/dL (3.4-5.0) L Albumin/Globulin Ratio 0.7 (1.0-1.7) L Lipase 206 U/L (73-393) Laboratory Tests 06/23/17 12:55 Laboratory Tests 06/23/17 12:55 EKG EKG [] Radiology/Procedures Radiology/Procedures [] Impressions: the patient's vital signs are unremarkable considering the length of her symptoms. Patient has been seen by her doctors previously. Given the history of present illness today I will go ahead and check labs, hydrate the patient, given her Paramedics and observe her in the ED. Based on my abdominal exam at this time of the ED presentation there is no emergent need for imaging. Depending on the results of the labs and reevaluation on the patient we will arrange for further studies and or outpatient follow-up. Course & Med Decision Making Course & Med Decision Making Pertinent Labs and Imaging studies reviewed. (See chart for details) I reexamined the patient and she is in no distress, vital signs are still unremarkable. Of note, the patient has not vomited in the ED. I discussed the results of labs with the patient and the plan of treatment, I told her she needs re-evaluation by her PCP and/or surgeon in 1 day. She agrees to do so. Strict return precautions have been provided to the patient who voices understanding Dragon Disclaimer Dragon Disclaimer This electronic medical record was generated, in whole or in part, using a voice recognition dictation system. Departure Departure Impression: Primary Impression: Dehydration Additional Impressions: Vomiting and diarrhea Abdominal pain Disposition: 01 HOME, SELF-CARE Condition: IMPROVED Referrals: UNKNOWN PCP NAME (PCP) you told us you have a pcp and surgeon to follow up with. Please see your doctor in one day for recheck and re-evaluation of your abdominal pain. Scripts Ondansetron (ONDANSETRON ODT) 4 Mg Tab.rapdis 1 TAB PO PRN Q6-8HRS, #16 TAB Prov: Darlin IRIZARRY MD 06/23/17 Problem Qualifiers Darlin IRIZARRY MD Jun 23, 2017 12:53
[2017-06-23 13:06] LABS: BASO % 0 % (0-3); EOS % 1 % (0-3); HEMATOCRIT 43.5 % (36.0-47.0); HEMOGLOBIN 14.7 g/dL (12.0-15.5); LYMPH # 1.5 x10^3/uL (1.0-4.8); LYMPH % 17 % (24-48); MEAN CORPUSCULAR HEMOGLOBIN 30 pg (25-35); MEAN CORPUSCULAR HGB CONC 34 g/dL (31-37); MEAN CORPUSCULAR VOLUME 89 fL (79-100); MONO % 7 % (0-9); NEUT % 74 % (31-73); PLATELET COUNT 185 x10^3/uL (140-400); RED BLOOD COUNT 4.92 x10^6/uL (3.50-5.40); RED CELL DISTRIBUTION WIDTH 15.4 % (11.5-14.5); WHITE BLOOD COUNT 8.9 x10^3/uL (4.0-11.0)
[2017-06-23 13:18] LABS: CALCIUM 9.5 mg/dL (8.5-10.1); CREATININE 0.7 mg/dL (0.6-1.0); GFR 97.6; POTASSIUM 3.7 mmol/L (3.5-5.1)
[2017-06-23 13:23] LABS: ALBUMIN 3.2 g/dL (3.4-5.0); ALBUMIN/GLOBULIN RATIO 0.7 (1.0-1.7); TOTAL BILIRUBIN 1.2 mg/dL (0.2-1.0); TOTAL PROTEIN 7.5 g/dL (6.4-8.2)
[2017-06-23] MEDS ORDERED: LIDO:MAALOX:DONNATAL 1:1:1 15 ML SINGLE DOSE SWSW ONE (14:00)
[2017-06-23 14:02] VITALS: BP 119/87
[2017-06-23] MEDS ORDERED: ONDA4TAB12 PO (14:04)
== END 2017-06-23 14:16 | disposition home or self-care (01) ==
LOC: ER 12:22
DX: E86.0 Dehydration (principal); R11.2 Nausea with vomiting, unspecified; R19.7 Diarrhea, unspecified; R10.84 Generalized abdominal pain; E11.9 Type 2 diabetes mellitus without complications; I10 Essential (primary) hypertension; Z87.442 Personal history of urinary calculi; Z98.84 Bariatric surgery status; Z88.6 Allergy status to analgesic agent; Z88.1 Allergy status to other antibiotic agents; Z88.5 Allergy status to narcotic agent; Z88.0 Allergy status to penicillin; Z88.8 Allergy status to other drugs, medicaments and biological substances
CPT/HCPCS: 36415; 80053; 80307; 81025; 83690; 85027; 96361; 96374; 99284; J2405; J7030; G0479

== ENCOUNTER 2017-08-05 17:25 | Emergency (ER) | payer OTHER ==
[~2017-08-05] VITALS: Ht 177.8 cm; Wt 104.3 kg
[~2017-08-05 17:25] MED LIST changes: +ONDA4TAB12 PO
[2017-08-05] MEDS ORDERED: diphenhydrAMINE 50 MG/ML VIAL IVP ONE (18:00)
[2017-08-05] MEDS ORDERED: KETOROLAC TROMETHAMINE 30 MG/ML INJ. IV ONE (18:00)
[2017-08-05] MEDS ORDERED: PROMETHAZINE 25 MG in IV NORMAL SALINE 50ML 50 ML IV PRN (18:00)
--- NOTE | 2017-08-05 18:08 | PHYS DOC ---
Past Medical History Past Medical History: Arthritis, Diabetes-Type II, Hypertension, Kidney Stone, Migraines, Other Additional Past Medical Histor: HSP Past Surgical History: Cholecystectomy, , Gastric Bypass, Tubal ligation, Other Additional Past Surgical Histo: Ureteral stents, D&C, WISDOMT TEETH EXTRACTION Alcohol Use: None Drug Use: None Adult General Chief Complaint Chief Complaint: HEADACHE HPI HPI Patient is a 32 year old female presents to the emergency department with complaints of a generalized headache. She states this headache is typical of her migraine headaches. It has been present for 3 days without associated photophobia, phonophobia, nausea, vomiting, neck pain, fever. Patient reports that she is out of her oxycodone that she takes for her chronic pain syndrome. She feels being on her medications may have exacerbated her headache. Review of Systems Review of Systems Constitutional: Denies fever or chills [] Eyes: Denies change in visual acuity, redness, or eye pain [] HENT: Denies nasal congestion or sore throat [] Respiratory: Denies cough or shortness of breath [] Cardiovascular: No additional information not addressed in HPI [] GI: Denies abdominal pain, nausea, vomiting, bloody stools or diarrhea [] : Denies dysuria or hematuria [] Musculoskeletal: Denies back pain or joint pain [] Integument: Denies rash or skin lesions [] Neurologic: Headache without weakness or sensory change Endocrine: Denies polyuria or polydipsia [] Current Medications Current Medications Current Medications Medications (Trade) Dose Ordered Sig/Contreras Start Time Stop Time Status Last Admin Dose Admin Diphenhydramine HCl (Benadryl) 50 mg 1X ONCE 08/05/17 18:00 08/05/17 18:01 DC 08/05/17 18:10 50 MG Fentanyl Citrate (Fentanyl 2ml Vial) 50 mcg 1X ONCE 08/05/17 19:00 08/05/17 19:01 DC 08/05/17 19:22 50 MCG Ketorolac Tromethamine (Toradol) 30 mg 1X ONCE 08/05/17 18:00 08/05/17 18:21 DC Promethazine HCl 25 mg/Sodium Chloride 51 ml @ 151.5 mls/ hr PRN Q6HRS PRN 08/05/17 18:00 08/05/17 18:10 151.5 MLS/HR Tramadol HCl (Ultram) 50 mg 1X ONCE 08/05/17 19:00 08/05/17 19:00 DC Allergies Allergies Allergies Coded Allergies Type Severity Reaction Last Updated Verified acetaminophen Allergy Severe angioedema 04/23/17 Yes Penicillins Allergy Intermediate Hives 04/23/17 Yes amoxicillin Allergy Intermediate hives 04/23/17 Yes morphine Allergy Intermediate "[place] like chest was going to explode" 04/23/17 Yes sulfamethoxazole Allergy Intermediate 04/23/17 Yes tetracycline Allergy Intermediate hives 04/23/17 Yes trimethoprim Allergy Intermediate 04/23/17 Yes ketorolac Adverse Reaction Intermediate 04/23/17 Yes tramadol Adverse Reaction Intermediate "I drool" 04/23/17 Yes Physical Exam Physical Exam Constitutional: Well developed, well nourished, no acute distress, non-toxic appearance. [] HENT: Normocephalic, atraumatic, bilateral external ears normal, oropharynx moist, no oral exudates, nose normal. [] Eyes: PERRLA, EOMI, conjunctiva normal, no discharge. [] Neck: Normal range of motion, no tenderness, supple, no stridor. [] Cardiovascular:Heart rate regular rhythm, no murmur [] Lungs & Thorax: Bilateral breath sounds clear to auscultation [] Abdomen: Bowel sounds normal, soft, no tenderness, no masses, no pulsatile masses. [] Skin: Warm, dry, no erythema, no rash. [] Back: No tenderness, no CVA tenderness. [] Extremities: No tenderness, no cyanosis, no clubbing, ROM intact, no edema. [] Neurologic: Alert and oriented X 3, normal motor function, normal sensory function, no focal deficits noted. [] Psychologic: Affect normal, judgement normal, mood normal. [] Current Patient Data Vital Signs Vital Signs Date Time Temp Pulse Resp B/P (MAP) Pulse Ox O2 Delivery O2 Flow Rate FiO2 08/05/17 19:25 70 20 99 08/05/17 19:22 Room Air 08/05/17 17:42 97.6 135/96 (109) 97.6 EKG EKG [] Radiology/Procedures Radiology/Procedures [] Course & Med Decision Making Course & Med Decision Making Pertinent Labs and Imaging studies reviewed. (See chart for details) Patient reports an allergy to Toradol, stating it causes allergic reaction noted a rash on her arm after receiving the last time. Patient was given Phenergan and Benadryl and continues to complain headache. She complains of her headache being unchanged, she is in the room watching television and talking on her phone and does not appear in any acute distress. Patient then requested a tramadol tablet. It is noted to be an allergy on her or medication allergic list. Patient states she can't be sure if she is allergic to Toradol or tramadol. I did agree to give her fentanyl IV, explaining to her that it may cause a rebound headache and worsening of her condition. Patient was advised that she needs to follow up with her primary care provider tomorrow morning for further evaluation and treatment of her chronic migraine headaches. The patient presented to the emergency department with a headache. The patient is now resting comfortably and feels better, is alert, talkative, interactive and in no distress. The patient appears well and is able to tolerate by mouth fluids. The patient repeat exam is unremarkable and benign. Patient is neurologically intact, has a normal mental status, and is ambulatory in the emergency department. The history, exam and current condition do not suggest meningitis, stroke, sepsis, subarachnoid hemorrhage, intracranial bleeding, encephalitis, temporal arteritis or other significant pathology to want further testing, continued ED treatment, admission, neurologic consultation,. Vital signs stable. The patient's condition is stable and appropriate for discharge. Patient follow-up with her primary care provider tomorrow. [] Dragon Disclaimer Dragon Disclaimer This electronic medical record was generated, in whole or in part, using a voice recognition dictation system. Departure Departure Impression: Primary Impression: Migraine Disposition: 01 HOME, SELF-CARE Condition: STABLE Referrals: UNKNOWN PCP NAME (PCP) [facility] [place] Patient Instructions: Migraine Headache Additional Instructions: Follow-up with your primary care provider tomorrow morning. Chronic use pain medications will not be refilled in the emergency department. Problem Qualifiers Primary Impression: Migraine Migraine type: chronic without aura Status migrainosus presence: without status migrainosus Intractability: not intractable Qualified Codes: G43.709 - Chronic migraine without aura, not intractable, without status migrainosus JOSH ADKINS APRN Aug 05, 2017 18:08
[2017-08-05] MEDS ORDERED: traMADol 50 MG TABLET PO ONE (19:00)
[2017-08-05] MEDS ORDERED: fentaNYL PF VIAL 100 MCG/2 ML VIAL IV ONE (19:00)
[2017-08-05 19:38] VITALS: BP 114/81
== END 2017-08-05 19:39 | disposition home or self-care (01) ==
LOC: ER 17:25
DX: G43.701 Chronic migraine without aura, not intractable, with status migrainosus (principal); E11.9 Type 2 diabetes mellitus without complications; I10 Essential (primary) hypertension; M19.90 Unspecified osteoarthritis, unspecified site; G89.4 Chronic pain syndrome; Z87.442 Personal history of urinary calculi; Z98.84 Bariatric surgery status; Z88.0 Allergy status to penicillin; Z88.1 Allergy status to other antibiotic agents; Z88.5 Allergy status to narcotic agent; Z88.6 Allergy status to analgesic agent
CPT/HCPCS: 96365; 96375; 99284; J1200; J2550; J3010

== ENCOUNTER 2017-09-03 17:11 | Emergency (ER) | payer OTHER ==
[~2017-09-03] VITALS: Ht 177.8 cm; Wt 95.3 kg
[2017-09-03 18:27] LABS: BILIRUBIN,URINE MODERATE (NEG); GLUCOSE,URINE NEGATIVE (NEG); NITRITE,URINE NEGATIVE (NEG); PH,URINE 6.5; PROTEIN,URINE NEGATIVE (NEG-TRACE)
[2017-09-03 18:30] VITALS: BP 138/96
[2017-09-03] MEDS ORDERED: IPRATRPIUM/ALBUTEROL 0.5/2.5MG 3 ML NEBU. NEB ONE (18:30)
[2017-09-03 18:34] LABS: BACTERIA,URINE MODERATE /HPF (0-FEW); RBC,URINE 0 /HPF (0-2); SQUAMOUS EPITHELIAL CELL,UR MANY /LPF
--- NOTE | 2017-09-03 18:37 | PHYS DOC ---
Past Medical History Past Medical History: Arthritis, Diabetes-Type II, Hypertension, Kidney Stone, Migraines, Other Additional Past Medical Histor: HSP Past Surgical History: Cholecystectomy, , Gastric Bypass, Tubal ligation, Other Additional Past Surgical Histo: Ureteral stents, D&C, WISDOMT TEETH EXTRACTION Alcohol Use: None Drug Use: None Adult General Chief Complaint Chief Complaint: cough and congestion with fever HPI HPI 32-year-old female presenting to the emergency department today with cough congestion fevers and chills at home. She reports rhinorrhea. This been present for about 2-3 days. She also has a cold sore on her lip. Location lungs. Duration intermittent. No alleviating or exacerbating factors present. She has a history of asthma and has had a harder time breathing. Review of systems is negative for abdominal pain. Positive for nausea with nonbloody nonbilious emesis. All other review of systems is negative unless otherwise noted in history of present illness. ED course: 32-year-old female presenting to the emergency department today with cough congestion and fevers. Triage vital signs. Pertinent physical exam findings show wheezing bilaterally. Otherwise abdomen is soft and nontender. No rebound tenderness or guarding. Negative McBurney's point. Negative Briscoe sign. Otherwise no rashes present. Negative Brudzinski sign. Negative Kernig sign. Otherwise well-appearing. Cold sore noted on the bottom lip. DuoNeb given. Chest x-ray obtained along with blood work. The patient was then discharged home in stable condition to follow up with their primary care physician over the next 2-3 days. They were to return if their symptoms worsened or if they were concerned for any reason. [id number] discharge instructions and return precautions were given. Patient's questions were answered to their satisfaction. Patient is comfortable plan. Review of Systems Review of Systems SEE ABOVE. Current Medications Current Medications Current Medications Medications (Trade) Dose Ordered Sig/Contreras Start Time Stop Time Status Last Admin Dose Admin Albuterol/ Ipratropium (Duoneb) 3 ml 1X ONCE 09/03/17 18:30 09/03/17 18:31 DC 09/03/17 19:44 3 ML Allergies Allergies Allergies Coded Allergies Type Severity Reaction Last Updated Verified acetaminophen Allergy Severe angioedema 04/23/17 Yes Penicillins Allergy Intermediate Hives 04/23/17 Yes amoxicillin Allergy Intermediate hives 04/23/17 Yes morphine Allergy Intermediate "[place] like chest was going to explode" 04/23/17 Yes sulfamethoxazole Allergy Intermediate 04/23/17 Yes tetracycline Allergy Intermediate hives 04/23/17 Yes trimethoprim Allergy Intermediate 04/23/17 Yes ketorolac Adverse Reaction Intermediate 04/23/17 Yes tramadol Adverse Reaction Intermediate "I drool" 04/23/17 Yes Physical Exam Physical Exam SEE ABOVE Constitutional: Well developed, well nourished, no acute distress, non-toxic appearance. [] HENT: Normocephalic, atraumatic, bilateral external ears normal, oropharynx moist, no oral exudates, nose normal. [] Eyes: PERRLA, EOMI, conjunctiva normal, no discharge. [] Neck: Normal range of motion, no tenderness, supple, no stridor. [] Cardiovascular:Heart rate regular rhythm, no murmur [] Lungs & Thorax: SEE ABOVE Abdomen: Bowel sounds normal, soft, no tenderness, no masses, no pulsatile masses. [] Skin: Warm, dry, no erythema, no rash. [] Back: No tenderness, no CVA tenderness. [] Extremities: No tenderness, no cyanosis, no clubbing, ROM intact, no edema. [] Neurologic: Alert and oriented X 3, normal motor function, normal sensory function, no focal deficits noted. [] Psychologic: Affect normal, judgement normal, mood normal. [] Current Patient Data Vital Signs Vital Signs Date Time Temp Pulse Resp B/P (MAP) Pulse Ox O2 Delivery O2 Flow Rate FiO2 09/03/17 19:45 98 Room Air 09/03/17 18:30 98.2 96 20 138/96 (110) 98.2 Lab Values Laboratory Tests Test 09/03/17 18:08 09/03/17 18:15 09/03/17 19:17 09/03/17 19:28 Urine Collection Type Unknown Urine Color Yellow Urine Clarity Clear Urine pH 6.5 Urine Specific [place] 1.020 Urine Protein Negative mg/dL (NEG-TRACE) Urine Glucose (UA) Negative mg/dL (NEG) Urine Ketones (Stick) 15 mg/dL (NEG) Urine Blood Negative (NEG) Urine Nitrite Negative (NEG) Urine Bilirubin Moderate (NEG) Urine Urobilinogen Dipstick 1.0 mg/dL (0.2 mg/dL) Urine Leukocyte Esterase Small (NEG) Urine RBC 0 /HPF (0-2) Urine WBC 5-10 /HPF (0-4) Urine Squamous Epithelial Cells Many /LPF Urine Bacteria Moderate /HPF (0-FEW) Urine Mucus Marked /LPF POC Urine HCG, Qualitative Hcg negative (Negative) Influenza Type A Antigen Negative (NEGATIVE) Influenza Type B Antigen Negative (NEGATIVE) White Blood Count 6.3 x10^3/uL (4.0-11.0) Red Blood Count 4.33 x10^6/uL (3.50-5.40) Hemoglobin 13.3 g/dL (12.0-15.5) Hematocrit 39.5 % (36.0-47.0) Mean Corpuscular Volume 91 fL (79-100) Mean Corpuscular Hemoglobin 31 pg (25-35) Mean Corpuscular Hemoglobin Concent 34 g/dL (31-37) Red Cell Distribution Width 15.2 % (11.5-14.5) H Platelet Count 193 x10^3/uL (140-400) Neutrophils (%) (Auto) 56 % (31-73) Lymphocytes (%) (Auto) 32 % (24-48) Monocytes (%) (Auto) 9 % (0-9) Eosinophils (%) (Auto) 3 % (0-3) Basophils (%) (Auto) 1 % (0-3) Neutrophils # (Auto) 3.5 x10^3uL (1.8-7.7) Lymphocytes # (Auto) 2.0 x10^3/uL (1.0-4.8) Monocytes # (Auto) 0.6 x10^3/uL (0.0-1.1) Eosinophils # (Auto) 0.2 x10^3/uL (0.0-0.7) Basophils # (Auto) 0.1 x10^3/uL (0.0-0.2) Sodium Level 141 mmol/L (136-145) Potassium Level 3.5 mmol/L (3.5-5.1) Chloride Level 105 mmol/L (98-107) Carbon Dioxide Level 25 mmol/L (21-32) Anion Gap 11 (6-14) Blood Urea Nitrogen 8 mg/dL (7-20) Creatinine 0.5 mg/dL (0.6-1.0) L Estimated GFR (Cockcroft-Gault) 143.0 BUN/Creatinine Ratio 16 (6-20) Glucose Level 73 mg/dL (70-99) Calcium Level 8.4 mg/dL (8.5-10.1) L Total Bilirubin 0.9 mg/dL (0.2-1.0) Aspartate Amino Transferase (AST) 40 U/L (15-37) H Alanine Aminotransferase (ALT) 26 U/L (14-59) Alkaline Phosphatase 67 U/L (46-116) Total Protein 6.4 g/dL (6.4-8.2) Albumin 2.8 g/dL (3.4-5.0) L Albumin/Globulin Ratio 0.8 (1.0-1.7) L Lipase 111 U/L (73-393) Laboratory Tests 09/03/17 19:28 Laboratory Tests 09/03/17 19:28 EKG EKG [] Radiology/Procedures Radiology/Procedures [] Course & Med Decision Making Course & Med Decision Making Pertinent Labs and Imaging studies reviewed. (See chart for details) [] Dragon Disclaimer Dragon Disclaimer This electronic medical record was generated, in whole or in part, using a voice recognition dictation system. Departure Departure Impression: Primary Impression: Asthma Additional Impressions: Respiratory tract congestion with cough Rhinorrhea Chills Disposition: 01 HOME, SELF-CARE Condition: STABLE Referrals: UNKNOWN PCP NAME (PCP) Patient Instructions: Cough, Adult Additional Instructions: Thank you for allowing us to participate in your care today. Followup with your primary care physician in 3 days if your symptoms do not improve. Call your Primary Doctor tomorrow and inform them of your visit today. If you do not have a primary care provider you can ask for a list of our primary care providers. Return to the emergency department you have any new or concerning findings. This should be evaluated by the primary care physician and any necessary consulting services for continued management within a few days after discharge. Return to emergency room if you have any new or concerning symptoms including but not limited to fever, chills, nausea, vomiting, intractable pain, any new rashes, chest pain, shortness of air, uncontrolled bleeding, difficulty breathing, and/or vision loss. Problem Qualifiers AFSHAN HARO MD Sep 03, 2017 18:37
[2017-09-03 19:18] LABS: OBC FLU VALID
[2017-09-03 19:38] LABS: BASO # 0.1 x10^3/uL (0.0-0.2); BASO % 1 % (0-3); EOS % 3 % (0-3); HEMATOCRIT 39.5 % (36.0-47.0); HEMOGLOBIN 13.3 g/dL (12.0-15.5); LYMPH % 32 % (24-48); MEAN CORPUSCULAR HEMOGLOBIN 31 pg (25-35); MEAN CORPUSCULAR HGB CONC 34 g/dL (31-37); MEAN CORPUSCULAR VOLUME 91 fL (79-100); MONO % 9 % (0-9); NEUT % 56 % (31-73); PLATELET COUNT 193 x10^3/uL (140-400); RED BLOOD COUNT 4.33 x10^6/uL (3.50-5.40); RED CELL DISTRIBUTION WIDTH 15.2 % (11.5-14.5); WHITE BLOOD COUNT 6.3 x10^3/uL (4.0-11.0)
[2017-09-03 19:53] LABS: CALCIUM 8.4 mg/dL (8.5-10.1); CREATININE 0.5 mg/dL (0.6-1.0); POTASSIUM 3.5 mmol/L (3.5-5.1)
[2017-09-03 20:04] LABS: ALBUMIN 2.8 g/dL (3.4-5.0); ALBUMIN/GLOBULIN RATIO 0.8 (1.0-1.7); TOTAL BILIRUBIN 0.9 mg/dL (0.2-1.0); TOTAL PROTEIN 6.4 g/dL (6.4-8.2)
[2017-09-03] MEDS ORDERED: ONDANSETRON PF 4 MG/2 ML VIAL. IV ONE (20:45)
[2017-09-03] MEDS ORDERED: ONDA4TAB10 SL (20:51)
--- NOTE | 2017-09-04 08:17 | RAD ---
Chest, 2 views, 09/03/2017: History: Cough with green sputum Comparison is made to a study from 07/16/2016. The heart size and pulmonary vascularity are normal. No pulmonary infiltrates are seen. There is no evidence of pleural fluid. IMPRESSION: No acute cardiopulmonary abnormality is detected.
== END 2017-09-03 21:15 | disposition home or self-care (01) ==
LOC: ER 17:11
DX: J45.909 Unspecified asthma, uncomplicated (principal); R68.83 Chills (without fever); I10 Essential (primary) hypertension; E11.9 Type 2 diabetes mellitus without complications; G43.909 Migraine, unspecified, not intractable, without status migrainosus; Z87.442 Personal history of urinary calculi; Z88.0 Allergy status to penicillin; Z88.1 Allergy status to other antibiotic agents; Z88.2 Allergy status to sulfonamides; Z88.6 Allergy status to analgesic agent; Z88.5 Allergy status to narcotic agent; Z88.8 Allergy status to other drugs, medicaments and biological substances
CPT/HCPCS: 36415; 71020; 80053; 81001; 81025; 83690; 85025; 87086; 87804; 94250; 94640; 96374; 99285; J2405; J7620